=== PATIENT | male | born 1975 | race African-American/Black ===

== ENCOUNTER 2018-06-25 23:45 | Inpatient (IN) ==
[2018-06-26] MEDS ORDERED: Morphine Inj 4 MG/ML Vial IV.PUSH ONE (00:09)
[2018-06-26 00:41] LABS: Baso # (Auto) 0.1 th/mm3 (0.0-0.2); Baso % (Auto) 0.6 % (0.0-2.0); Eos # (Auto) 0.1 th/mm3 (0.0-0.4); Hemoglobin 14.3 gm/dL (13.0-17.0); Lymph # (Auto) 3.8 th/mm3 (1.0-4.8); Lymph % (Auto) 27.9 % (9.0-44.0); Mean Corpuscular Hemoglobin 31.4 pg (27.0-34.0); Mean Corpuscular Volume 92.1 fL (80.0-100.0); Mean Platelet Volume 8.3 fL (7.0-11.0); Mono # (Auto) 1.2 th/mm3 (0.0-0.9); Mono % (Auto) 9.1 % (0.0-8.0); Neut # (Auto) 8.4 th/mm3 (1.8-7.7); Neut % (Auto) 61.4 % (16.0-70.0); Platelet Count 350 th/mm3 (150-450); Red Blood Count 4.56 mil/mm3 (4.50-5.90); White Blood Count 13.7 th/mm3 (4.0-11.0)
[2018-06-26 00:54] LABS: Activated Partial Thrombo Time 25.7 sec (24.3-30.1); Prothrombin Time 10.2 sec (9.8-11.6)
[2018-06-26 00:56] LABS: Alanine Aminotransferase 26 U/L (12-78); Albumin 3.8 g/dL (3.4-5.0); Anion Gap 17 meq/L (5-15); Aspartate Aminotransferase 23 U/L (15-37); Blood Urea Nitrogen 19 mg/dL (7-18); Calcium 8.9 mg/dL (8.5-10.1); Carbon Dioxide 16.1 meq/L (21.0-32.0); Chloride 108 meq/L (98-107); Glomerular Filtration Rate 44 mL/min (>89); Glucose,Random 102 mg/dL (74-106); Potassium 3.9 meq/L (3.5-5.1); Sodium 141 meq/L (136-145)
[2018-06-26 00:59] LABS: Alkaline Phosphatase 48 U/L (45-117); Total Protein 7.5 g/dL (6.4-8.2)
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
[2018-06-26] MEDS ORDERED: Bisacodyl 10 MG Supp RECTAL PRN (03:14)
[2018-06-26] MEDS ORDERED: Post-op Orders (for Pharmacy) OTHER ONE (03:14)
[2018-06-26] MEDS ORDERED: Naloxone Inj 0.4 MG/ML Vial IV.PUSH PRN (03:14)
[2018-06-26 03:33] LABS: Amphetamine Screen,Urine Neg (Neg); Barbiturate Screen,Urine Neg (Neg); Cannabinoid Screen,Urine Pos (Neg); Cocaine Screen,Urine Neg (Neg)
[2018-06-26 03:37] LABS: Opiate Screen,Urine Pos (Neg)
[2018-06-26] MEDS: ceFAZolin Inj 1,000 MG in Sodium Chlor 0.9% Inj 100 ML IV.SIG SCH ×3 (03:43→21:21)
[2018-06-26] MEDS: Sod Chloride 0.9% Inj 1,000 ML IV.CONT SCH ×2 (03:43→14:49)
[2018-06-26] MEDS ORDERED: Sod Chloride 0.9% Inj 1,000 ML IV.SIG ONE (04:59)
[2018-06-26] MEDS: Morphine Inj 4 MG/ML Vial IV.PUSH PRN ×2 (05:22→08:16)
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
[2018-06-26] MEDS: Famotidine 20 MG Tablet PO SCH ×2 (08:16→21:18)
[2018-06-26] MEDS: Senna/Docusate Sodium 8.6/50 MG Tablet PO SCH ×2 (08:16→21:18)
[2018-06-26] MEDS ORDERED: oxyCODONE/Acetaminophen 10/325 Tablet PO PRN (09:14)
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
[2018-06-26] MEDS ORDERED: Phenylephrine/NS 1000 MCG/10ML Syringe IV.PUSH ONE (12:00)
[2018-06-26] MEDS ORDERED: Esmolol Bolus Inj 100 MG/10 ML Vial IV.PUSH ONE (12:00)
[2018-06-26] MEDS ORDERED: Neostigmine Inj 5 MG/5 ML Syringe IV.PUSH ONE (12:00)
[2018-06-26] MEDS ORDERED: Glycopyrrolate Inj 1 MG/5 ML Syringe IV.PUSH ONE (12:00)
[2018-06-26] MEDS ORDERED: Labetalol HCl Inj 100 MG/20 ML Vial IV.CONT ONE (12:00)
[2018-06-26] MEDS ORDERED: Lidocaine PF 1% Inj 5 ML Syringe INFILTRATN ONE (12:00)
[2018-06-26] MEDS ORDERED: Succinylcholine Inj 100 MG/5 ML Syringe IV.PUSH ONE (12:00)
[2018-06-26] MEDS ORDERED: HYDROmorphone PF Inj 2 MG/ML Vial ONE (12:55)
[2018-06-26] MEDS ORDERED: Post-op Orders (for Pharmacy) OTHER STA (13:42)
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
--- NOTE | 2018-06-26 13:56 | XR ---
EXAM DATE: 06/26/2018 1:51 PM EDT AGE/SEX: 42 years / Male INDICATIONS: Post hardware placement left shoulder CLINICAL DATA: This is the patient's subsequent encounter. Patient reports that signs and symptoms h ave been present for 2 days and indicates a pain score of Nonresponsive. MEDICAL/SURGICAL HISTORY: Non-responsive. Non-responsive. COMPARISON: No prior exams available for comparison. FINDINGS: Status post internal fixation of the proximal humerus. There is good alignment and position of the barbara ny structures. There is good alignment at the shoulder joint. CONCLUSION: Good position and alignment on this postoperative study. Electronically signed by: Antonio Mulligan MD 06/26/2018 1:55 PM EDT
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
[2018-06-26] MEDS ORDERED: fentaNYL Citrate Inj 100 MCG/2 ML Ampul ONE (14:15)
[2018-06-26] MEDS: amLODIPine 5 MG Tablet PO SCH (17:37)
[2018-06-26] MEDS: Lisinopril 20 MG Tablet PO SCH (17:37)
[2018-06-27 03:51] LABS: Baso # (Auto) 0.1 th/mm3 (0.0-0.2); Baso % (Auto) 0.4 % (0.0-2.0); Eos % (Auto) 0.1 % (0.0-4.0); Hematocrit 37.9 % (39.0-51.0); Hemoglobin 12.9 gm/dL (13.0-17.0); Lymph # (Auto) 1.6 th/mm3 (1.0-4.8); Lymph % (Auto) 10.3 % (9.0-44.0); Mean Corpuscular Volume 91.1 fL (80.0-100.0); Mean Platelet Volume 7.8 fL (7.0-11.0); Mono # (Auto) 1.5 th/mm3 (0.0-0.9); Neut # (Auto) 12.2 th/mm3 (1.8-7.7); Neut % (Auto) 79.2 % (16.0-70.0); Platelet Count 298 th/mm3 (150-450); Red Blood Count 4.16 mil/mm3 (4.50-5.90); Red Cell Distribution Width 15.1 % (11.6-17.2); White Blood Count 15.4 th/mm3 (4.0-11.0)
[2018-06-27 04:34] LABS: Calcium 8.6 mg/dL (8.5-10.1); Carbon Dioxide 23.6 meq/L (21.0-32.0); Potassium 4.6 meq/L (3.5-5.1)
[2018-06-27 04:40] LABS: CKMB Percent 0.2 % (0.0-4.0); Creatine Kinase MB 3.1 ng/mL (0.5-3.6)
[2018-06-27] MEDS: Sod Chloride 0.9% Inj 1,000 ML IV.CONT SCH ×2 (07:22→12:35)
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
[2018-06-27] MEDS: Lisinopril 20 MG Tablet PO SCH (09:55)
[2018-06-27] MEDS: Senna/Docusate Sodium 8.6/50 MG Tablet PO SCH (09:55)
[2018-06-27] MEDS: amLODIPine 5 MG Tablet PO SCH (09:56)
[2018-06-27] MEDS: Famotidine 20 MG Tablet PO SCH (09:56)
[2018-06-27 13:00] VITALS: BP 178/107; PULSE 88; RESP 20; TEMP 97.8; O2SAT 97
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
== END 2018-06-27 14:11 | disposition home or self-care (01) ==
LOC: NEPC 23:45 → NEDA 06-26 03:03 → N07 06-26 04:49
PROVIDERS: ADMIT Surgery; ATTEND Surgery
PROC: [UNRECOGNIZED PROCEDURE] (2018-06-26 11:41)